=== PATIENT | female | born 1945 | race Native Hawaiian/Other Pacific Islander ===

== ENCOUNTER 2016-07-02 12:15 | Outpatient (CLI) | payer OTHER ==
[2016-07-02 13:22] LABS: POTASSIUM 4.1 mmol/L (3.6-5.2); SODIUM 141 mmol/L (136-145)
[2016-07-02 13:36] LABS: PLATELET COUNT 340 K/uL (152-353)
== END 2016-07-02 19:04 | disposition home or self-care (01) ==
LOC: LABW 12:15
PROVIDERS: Nurse Practitioner
DX: R10.84 Generalized abdominal pain (principal); R11.0 Nausea; R19.7 Diarrhea, unspecified; R63.0 Anorexia; R63.4 Abnormal weight loss; E55.9 Vitamin D deficiency, unspecified
CPT/HCPCS: 36415; 80053; 82306; 82607; 84439; 84443; 85027

== ENCOUNTER 2020-03-03 15:11 | Inpatient (IN) | payer OTHER ==
[2020-03-04 07:41] LABS: PLATELET COUNT 458 K/uL (152-353)
[2020-03-04 07:48] LABS: POTASSIUM 4.2 mmol/L (3.6-5.2)
== END 2020-03-10 14:57 | disposition still patient (30) ==
LOC: PAVB 15:11
PROVIDERS: ADMIT Internal Medicine; ATTEND Internal Medicine
DX: F03.91 Unspecified dementia, unspecified severity, with behavioral disturbance (principal); E41 Nutritional marasmus; R62.7 Adult failure to thrive; M62.81 Muscle weakness (generalized); R26.2 Difficulty in walking, not elsewhere classified; R48.8 Other symbolic dysfunctions; Z74.1 Need for assistance with personal care; G60.0 Hereditary motor and sensory neuropathy; F20.9 Schizophrenia, unspecified; F31.9 Bipolar disorder, unspecified
CPT/HCPCS: 80053; 80061; 82306; 82607; 84443; 85027; 87081

== ENCOUNTER 2020-03-10 15:23 | Inpatient (IN) | payer OTHER | END 2020-04-07 09:55 | disposition still patient (30) | LOC: PAVB 15:23 | PROVIDERS: ADMIT Internal Medicine; ATTEND Internal Medicine | DX: F03.91 Unspecified dementia, unspecified severity, with behavioral disturbance (principal); E41 Nutritional marasmus; R62.7 Adult failure to thrive; M62.81 Muscle weakness (generalized); R26.2 Difficulty in walking, not elsewhere classified; R48.8 Other symbolic dysfunctions; Z74.1 Need for assistance with personal care; G60.0 Hereditary motor and sensory neuropathy; F20.9 Schizophrenia, unspecified; F31.9 Bipolar disorder, unspecified ==

== ENCOUNTER 2020-03-18 14:44 | Outpatient (CLI) | payer OTHER | END 2020-03-18 22:53 | disposition home or self-care (01) | LOC: INF 14:44 | PROVIDERS: ATTEND Internal Medicine Endocrinology, Diabetes & Metabolism | DX: Z23 Encounter for immunization (principal) | CPT/HCPCS: 96372 ==

== ENCOUNTER 2020-04-07 10:31 | Inpatient (IN) | payer OTHER ==
[2020-04-11] MEDS ORDERED: MULTIVITAMI1 PO (23:03)
[2020-04-11] MEDS ORDERED: QUET50TA16 PO (23:04)
[2020-04-11] MEDS ORDERED: RISP1TAB PO (23:05)
[2020-04-11] MEDS ORDERED: [UNRECOGNIZED DRUG - OTHER] PO (23:06)
[2020-04-11] MEDS ORDERED: MEGESTROL AC40 MG/ML PO (23:06)
[2020-04-11] MEDS ORDERED: LEVO0.0218 PO (23:08)
[2020-04-11] MEDS ORDERED: DOXE25CA18 PO (23:08)
[2020-04-11] MEDS ORDERED: MELATONIN5 M4 PO (23:09)
[2020-04-15] MEDS ORDERED: ERTAPENEM1 GM IM (12:46)
== END 2020-05-08 10:16 | disposition still patient (30) ==
LOC: PAVB 10:31
PROVIDERS: ADMIT Internal Medicine; ATTEND Internal Medicine

== ENCOUNTER 2020-04-11 13:32 | Outpatient (CLI) | payer OTHER ==
[2020-04-11] MEDS ORDERED: MULTIVITAMI1 PO (23:03)
[2020-04-11] MEDS ORDERED: QUET50TA16 PO (23:04)
[2020-04-11] MEDS ORDERED: RISP1TAB PO (23:05)
[2020-04-11] MEDS ORDERED: MEGESTROL AC40 MG/ML PO (23:06)
[2020-04-11] MEDS ORDERED: [UNRECOGNIZED DRUG - OTHER] PO (23:06)
[2020-04-11] MEDS ORDERED: DOXE25CA18 PO (23:08)
[2020-04-11] MEDS ORDERED: LEVO0.0218 PO (23:08)
[2020-04-11] MEDS ORDERED: MELATONIN5 M4 PO (23:09)
== END 2020-04-11 21:34 | disposition home or self-care (01) ==
LOC: LAB 13:32
PROVIDERS: ATTEND Internal Medicine
DX: R41.82 Altered mental status, unspecified (principal)
CPT/HCPCS: 81000; 87077; 87086; 87088; 87186

== ENCOUNTER 2020-04-11 19:04 | Inpatient (IN) | payer OTHER ==
[~2020-04-11] VITALS: Ht 165.1 cm; Wt 48.3 kg
[2020-04-11] VITALS (7 sets, daily range): BP systolic 93–107; BP diastolic 46–62; TEMP 99.9
[2020-04-11 20:10] LABS: POTASSIUM 4.3 mmol/L (3.6-5.2); SODIUM 145 mmol/L (136-145)
[2020-04-11 20:15] LABS: PLATELET COUNT 141 K/uL (152-353)
[2020-04-11] MEDS ORDERED: MULTIVITAMI1 PO (23:03)
[2020-04-11] MEDS ORDERED: QUET50TA16 PO (23:04)
[2020-04-11] MEDS ORDERED: RISP1TAB PO (23:05)
[2020-04-11] MEDS ORDERED: MEGESTROL AC40 MG/ML PO (23:06)
[2020-04-11] MEDS ORDERED: [UNRECOGNIZED DRUG - OTHER] PO (23:06)
[2020-04-11] MEDS ORDERED: LEVO0.0218 PO (23:08)
[2020-04-11] MEDS ORDERED: DOXE25CA18 PO (23:08)
[2020-04-11] MEDS ORDERED: MELATONIN5 M4 PO (23:09)
[2020-04-12 00:22] VITALS: BP 90/52; TEMP 100.6; Ht 165.1 cm; Wt 48.3 kg
[2020-04-12 04:00] VITALS: BP 96/61; TEMP 98.2
[2020-04-12 05:32] LABS: PLATELET COUNT 111 K/uL (152-353)
[2020-04-12 06:04] LABS: POTASSIUM 3.6 mmol/L (3.6-5.2)
--- NOTE | 2020-04-12 06:08 | NUR ---
04/11/2020 AT 2228 PATIENT ADMITTED TO ROOM# 1106 VIA STRETCHER FROM ER. PATIENT IS A RESIDENT AT [facility] AND WAS SENT TO ER FOR EVALUATION DUE TO BEING LETHARGIC AND HYPOTENSIVE. PATIENT IS ADMITTED TO MED SURG FOR URINARY TRACT INFECTION AND SEPSIS. ON ARRIVAL TO MED SURG PATIENT IS ALERT BUT DROWSY AND ONLY MUMBLING WORDS AT TIMES, SKIN WARM AND DRY AND HAS AN AXILLARY TEMP OF 100.6. PATIENT WAS GIVEN A DOSE OF IV OFIVIR AND AXILLARY TEMP CAME DOWN TO 97.5. I CALLED OVER TO [facility] AND TALKED TO AYANNA OCAMPO AND PATIENT IS NORMALLY CONFUSED AND HAS A DIAGNOSIS OF ALZHEIMERS DISEASE, SHE IS NON AMBULATORY BUT BED ALARM SET JUST PRECAUTION. [facility] STAFF ALSO STATES THAT SHE IS ON A REGULAR, MECHANICAL SOFT DIET WITH ENSURE TID SUPPLEMENT. PATIENT NORMALLY HAS HER MEDS CRUSHED AND ADMINISTERED WITH PUDDING. WILL ADVISE ON COMING SHIFT OF PATIENTS NORMAL ROUTINE AND WILL CONTINUE TO MONITOR.
[2020-04-12 08:00] VITALS: BP 104/63; TEMP 98.3
--- NOTE | 2020-04-12 09:00 | NUR ---
RAJESH FROM LAB CALLED TO NOTIFY OF POSITIVE BLOOD CULTURES, DR. MARTINEZ MADE AWARE
[2020-04-12 12:00] VITALS: BP 95/58; TEMP 97.9
--- NOTE | 2020-04-12 15:01 | NUR ---
IN PT RM TO CHANGE BRIEF AT THIS TIME, DRESSING NOTED TO RT HIP INTACT, SKIN TEAR NOTED TO LOWER BACK RT SIDE WITH NO BLEEDING OR DRAINAGE NOTED, TELFA PAD ANDT TEGADERM PLACED OVER BLISTER ON RT ANKLE DRY ANDINTACT, NO FURTHER NEEDS AT THIS TIME, PT TOLERATED WELL, PT PLACED ON RT SIDE AT THIS TIME, WILL CONTINUE TO MONITOR
[2020-04-12 16:00] VITALS: BP 128/75; TEMP 98.6
[2020-04-12 20:00] VITALS: BP 130/81; TEMP 98.7
[2020-04-13] VITALS: BP 100/61; TEMP 99.3
[2020-04-13 04:00] VITALS: BP 110/69; TEMP 98.6
[2020-04-13 05:45] LABS: POTASSIUM 3.7 mmol/L (3.6-5.2)
[2020-04-13 05:51] LABS: PLATELET COUNT 94 K/uL (152-353)
[2020-04-13 08:00] VITALS: BP 128/84; TEMP 98.1
--- NOTE | 2020-04-13 08:19 | NUR ---
PT IV FLUIDS CHANGED OUT AND NEW BAG HUNG. PT AM MEDS CRUSHED AND PLACED IN PUDDING. PT TOLERATED AM MEDS WELL WITHOUT DIFFICULTY. AFTER TAKING AM MEDS PT ASSISTED PT WITH FINISHING UP PUDDING PER HER REQUEST. PT TOLERATED WELL.
--- NOTE | 2020-04-13 09:32 | NUR ---
SPOKE WITH PT'S DAUGHTER SAIMA ABOUT VISITATION RULES AND GUIDLINES. PT'S DAUGHTER VERBALIZED UNDERSTANDING. SAIMA STATES "CAN SHE HAVE TWO VISITORS?" INFORMED HER WE ALLOW ONE VISITOR AT A TIME WITH NON COVID PT'S UNLESS IT'S A FAMILY MEMBER THAT REQUIRES ASSISTANCE TO AND FROM PT'S ROOM. SAIMA THEN STATES "IT'S HER SISTER IN LAW WHO REALLY WANTS TO SEE HER, SHE IS 81 YEARS OLD AND WILL BE COMING IN WITH ME" INFORMED SAIMA THAT WE DO NOT ENCOURAGE THOSE OF HIGHER RISK OF ANAT COVID TO VISIT DUE TO THE RISKS OF COMING INTO CONTACT WITH COVID EVEN IN THE [place]. SAIMA THEN STATES "WELL IT'S BEEN OVER A YEAR SINCE ANY OF US HAVE SEEN HER AND WE ARE ALL WANTING TO SEE HER" AGAIN DISCOURAGED HER FROM BRINGING HER IN AND REMINDED HER OF THE RISKS. FAMILY MEMBER VERBALIZED UNDERSTANDING.
--- NOTE | 2020-04-13 11:30 | NUR ---
PT'S DAUGHTER AT BEDSIDE AT THIS TIME. IN TO HANG PT'S ANTIBIOTICS.
[2020-04-13 12:00] VITALS: BP 124/76; TEMP 99.9
--- NOTE | 2020-04-13 12:30 | NUR ---
THIS NURSE AND GILA MAURER, RN AT PT'S BEDSIDE TO CHANGE PT'S BREIF AND TURN PT. PT'S BREIF AND CHUCKS PADS CHANGED PT'S WIPED OFF. SM LOOSE BM NOTED. NO BREAK DOWN NOTED TO BOTTOM. DRESSING NOTED TO PT'S RIGHT HIP. PT REPOSITIONED IN BED TO LEFT SIDE. PT TOLERATED WELL WITHOUT DIFFICULTY. PT STATES "THANK YOU SO MUCH FOR THAT"
[2020-04-13 16:00] VITALS: BP 125/81; TEMP 99.5
[2020-04-13 20:00] VITALS: BP 126/81; TEMP 98
[2020-04-14] VITALS (7 sets, daily range): BP systolic 99–147; BP diastolic 68–81; TEMP 98.2–99.1
[2020-04-14 04:54] LABS: PLATELET COUNT 108 K/uL (152-353)
--- NOTE | 2020-04-14 08:30 | NUR ---
PT SUPINE IN BED, ALERT TO SELF BUT CONFUSED TO TIME, SITUATION, LOCATION, PT REPEATS PHRASES BUT IS PLEASANT AND WILL ASSIST WITH HOLDING HERSELF OVER WHILE STAFF PERFORMS PERICARE. LUNGS CTA, BOWEL SOUNDS HYPO X4, NO EDEMA NOTED. HEALING WOUNDS NOTE TO RT FOOT/ANKLE AREAS WELL TO L FOOT. SCATTERED BRUISES NOTED TO BLE. BLISTER DRAINING CLEAR, YELLOW FLUID NOTED TO LATERAL RL ANKLE, DRESSED WITH TELFA AND TAPE. BLISTER ALSO NOTED TO RLB, DRESSED WITH TELFA AND TAPE. 20G IN PLACE TO RFA WITH 1/2 NS INFUSING AT 75ML/HR WITH NO REDNESS, SWELLING OR DRAINAGE NOTED TO IV SITE. PT REQUIRES ASSIST WITH FEEDING HER BREAKFAST,- NO ATTEMPT MADE BY PT TO FEED HERSELF.
--- NOTE | 2020-04-14 10:45 | NUR ---
WOUND CARE PERFORMED TO WOUNDS TO RT HIP, RT BACK AND RLE. SKIN PREP APPLIED TO BONY PROMINENCES. WOUND TO RT HIP APPEARANCE IS SIMILAR TO HEALING PRESSURE ULCER AND IS OVER BONY AREA, 0.8X0.1X0.1. WOUND BED WHITE, NONDRAINING, SURROUNDING SKIN PINK. WOUND TO RT BACK APPEARANCE IS SIMILAR TO OPEN BLISTER, WOUND BED PINK, SURROUNDING AREA RED, 1.8X1X0. WOUND TO LATERAL RLE APPEARS TO BE OPENED BLISTER, YELLOW DRAINAGE, WOUND BED RED, SURROUNDING SKIN RED, 1.7X1.9X0. ALL WOUNDS CLEANED WITH NS, PATTED DRY [id number], NEOSPORIN APPLIED, COVERED WITH NONSTICK DRESSING AND SECURED WITH TAPE. PT MONSERRAT WELL.
--- NOTE | 2020-04-14 12:10 | NUR ---
UPDATE GIVEN TO PT'S DAUGHTER CHAYITO STOKES- DAUGHTER CONFIRMED THAT WOUND ON RT HIP IS HEALING DECUBITUS.
--- NOTE | 2020-04-14 13:29 | NUR ---
CALLED [facility] TO SEE IF THEY COULD MEET US SKILLED NURSING TO [facility], BUT [facility] NURSE ADVISED THAT PT DOESNT WEAR THEM THERE AND THEY ARE NOT ONSITE AT [facility].
--- NOTE | 2020-04-14 15:31 | NUR ---
PT RESTING QUIETLY IN BED ON L SIDE, IN NAD AT THIS TIME, SLEEPING. RESPIRATIONS EVEN AND NONLABORED.
--- NOTE | 2020-04-14 17:38 | NUR ---
BED BATH GIVEN AND LINENS CHANGED. SKIN PREP APPLIED TO BONY PROMINENCES.
--- NOTE | 2020-04-14 18:01 | NUR ---
PT FED , ENSURE GIVEN.
--- NOTE | 2020-04-15 01:21 | NUR ---
PATIENT HAS BEEN REPOSITONED AND BRIEF CHANGED. PATIENT REPORTS NO PAIN. PATIENT WAS GIVEN WATER AND THEN SHORTLY AFTER WENT TO SLEEP. PATIENT BREATHING IS STEADY AND NON LABORED
--- NOTE | 2020-04-15 01:22 | NUR ---
PATIENT WOUNDS ON HER LEFT CALF AND RIGHT HIP ARE DRESSED AND CLEAN DRY AND INTACT. PATIENT DENIES ANY PAIN IN THESE AREAS. PATIENTS HEELS ARE SOMEWHAT "BOGGY". PATIENT REPORTS THAT THEY ARE TENDER. I RESECURED HER BUNNY BOOTS AND REPOSITIONED HER.
[2020-04-15 04:00] VITALS: BP 117/70; TEMP 98.3
--- NOTE | 2020-04-15 05:41 | NUR ---
PATIENT WAS STRAING TO HAVE A BM. I FELT GENTLY AROUND THE RECTAL AREA AND IT WAS FIRM. I GENTALLY DIGITALLY UNIMPACTED HER. PATIENT REPORTED RELIEF.
[2020-04-15 06:14] LABS: PLATELET COUNT 122 K/uL (152-353)
[2020-04-15 08:00] VITALS: BP 134/86; TEMP 99
--- NOTE | 2020-04-15 08:11 | NUR ---
PT RESTING COMFORTABLY IN BED, IN NAD, CALL LIGHT IN EASY REACH. WILL CONTINUE TO MONITOR.
--- NOTE | 2020-04-15 09:00 | NUR ---
PT AWAKE, ALERT TO SELF, NOT ALERT TO TIME, SITUATION. PT PLEASANT, ACCEPTS BREAKFAST, ACCEPTS PO MEDS CRUSHED IN PUDDING. LUNGS CLEAR, DIMINISHED AT BASES, RESPIRATIONS SHALLOW AND EVEN, BOWEL SOUNDS ACTIVE X 4 WITH LAST BM THIS SHIFT. WOUND CARE PERFORMED TO AFFECTED AREAS, ALL CLEANED WITH NS, 4X4 AND PATTED DRY AND LEFT OPEN TO AIR, NO DRAINAGE NOTED. PT MONSERRAT WELL. 20G IV IN PLACED TO RFA INFUSING 1/2 NS AT 75ML/HR W/O DIFFICULTY, NO REDNESS, SWELLING OR DRAINAGE NOTED TO IV SITE OR AREA. PT REPOSITIONED FOR COMFORT WITH FEET ELEVATED. NAD NOTED AT THIS TIME.BED ALARM SET, BED LOW, LOCKED, SR UP TX2 FOR SAFETY.
--- NOTE | 2020-04-15 09:15 | NUR ---
PER PT'S DAUGHTER CHAYITO, SHE IS ANTICIPATING BEING ABLE TO PICK HER MOTHER UP FROM [place] FOR HOME VISIT NEXT WEEKEND AND IS WORRIED THAT SHE WON'T BE ABLE TO TAKE HER HOME WITH AN IV. DAUGHTER CHAYITO UNDERSTANDS THAT PT MAY REQUIRE IM INJECTIONS IF SHE DOESN'T HAVE AN IV AND STATES IF HAVING AN IV WILL PREVENT ANTICIPATED HOME VISIT, SHE WOULD PREFER THE IV TO BE PULLED. CHARGE NURSE NOTIFIED.
[2020-04-15 12:00] VITALS: BP 129/77; TEMP 98.7
[2020-04-15] MEDS ORDERED: ERTAPENEM1 GM IM (12:46)
--- NOTE | 2020-04-15 13:14 | NUR ---
REPORT CALLED TO [facility]. D/C REPORT FAXED OVER WELL.
--- NOTE | 2020-04-15 14:14 | NUR ---
PT LEFT FLOOR VIA WC IN NAD. BELONGINGS AND MEDICATED CREAM SENT WITH PT.
== END 2020-04-15 14:14 | DRG 872 ==
LOC: ED 19:04 → MED/SURG 21:51
PROVIDERS: ADMIT Family Medicine; ATTEND Internal Medicine
DX: A41.89 Other specified sepsis (principal); N39.0 Urinary tract infection, site not specified; B96.4 Proteus (mirabilis) (morganii) as the cause of diseases classified elsewhere; E03.8 Other specified hypothyroidism; F03.90 Unspecified dementia, unspecified severity, without behavioral disturbance, psychotic disturbance, mood disturbance, and anxiety; R41.82 Altered mental status, unspecified
CPT/HCPCS: 36415; 80053; 81000; 83605; 84443; 84484; 85007; 85027; 87040; 87077; 87086; 87088; 87186; 87205; 87635; 93005; 96360; 96361; 96365; 99284; J0132; J0696; J1335; J2543; J3370; J3490; U0003

== ENCOUNTER 2020-04-29 14:03 | Outpatient (CLI) | payer OTHER ==
[~2020-04-29 14:03] MED LIST: DOXE25CA18 PO; ERTAPENEM1 GM IM; LEVO0.0218 PO; MEGESTROL AC40 MG/ML PO; MELATONIN5 M4 PO; MULTIVITAMI1 PO; QUET50TA16 PO; RISP1TAB PO; [UNRECOGNIZED DRUG - OTHER] PO
== END 2020-04-29 21:58 | disposition home or self-care (01) ==
LOC: CT 14:03
PROVIDERS: ATTEND Internal Medicine
DX: M54.2 Cervicalgia (principal)

== ENCOUNTER 2020-05-08 10:46 | Inpatient (IN) | payer OTHER | END 2020-06-07 10:52 | disposition still patient (30) | LOC: PAVB 10:46 | PROVIDERS: ADMIT Internal Medicine; ATTEND Internal Medicine ==

== ENCOUNTER 2020-06-01 10:47 | Outpatient (CLI) | payer OTHER | END 2020-06-01 19:09 | disposition home or self-care (01) | LOC: LAB 10:47 | PROVIDERS: ATTEND Internal Medicine | DX: R82.998 Other abnormal findings in urine (principal) | CPT/HCPCS: 81000; 87086; 87088 ==

== ENCOUNTER 2020-06-07 11:17 | Inpatient (IN) | payer OTHER | END 2020-07-08 14:40 | disposition still patient (30) | LOC: PAVB 11:17 | PROVIDERS: ADMIT Internal Medicine; ATTEND Internal Medicine ==

== ENCOUNTER 2020-06-10 09:25 | Outpatient (CLI) | payer OTHER | END 2020-06-10 19:45 | disposition home or self-care (01) | LOC: LAB 09:25 | PROVIDERS: ATTEND Internal Medicine | DX: Z79.899 Other long term (current) drug therapy (principal); Z51.81 Encounter for therapeutic drug level monitoring | CPT/HCPCS: 80048 ==

== ENCOUNTER → 2020-06-11 | Outpatient (CLI) | payer OTHER | LOC: LAB 21:24 | PROVIDERS: ATTEND Internal Medicine | DX: Z51.81 Encounter for therapeutic drug level monitoring (principal) | CPT/HCPCS: 80170 ==

== ENCOUNTER 2020-07-08 15:12 | Inpatient (IN) | payer OTHER | END 2020-08-07 08:00 | disposition still patient (30) | LOC: PAVB 15:12 | PROVIDERS: ADMIT Internal Medicine; ATTEND Internal Medicine ==

== ENCOUNTER 2020-07-14 11:09 | Outpatient (CLI) | payer OTHER ==
[2020-07-14 14:35] LABS: PLATELET COUNT 265 K/uL (152-353)
== END 2020-07-14 21:47 | disposition home or self-care (01) ==
LOC: LAB 11:09
PROVIDERS: ATTEND Internal Medicine
DX: N93.8 Other specified abnormal uterine and vaginal bleeding (principal)
CPT/HCPCS: 85027; 87070

== ENCOUNTER 2020-07-22 08:24 | Outpatient (CLI) | payer OTHER | END 2020-07-22 19:18 | disposition home or self-care (01) | LOC: US 08:24 | PROVIDERS: ATTEND Internal Medicine | DX: R87.5 Abnormal microbiological findings in specimens from female genital organs (principal); N93.8 Other specified abnormal uterine and vaginal bleeding; N89.8 Other specified noninflammatory disorders of vagina ==

== ENCOUNTER 2020-08-07 09:00 | Inpatient (IN) | payer OTHER | END 2020-09-07 08:00 | disposition still patient (30) | LOC: PAVB 09:00 | PROVIDERS: ADMIT Internal Medicine; ATTEND Internal Medicine ==

== ENCOUNTER 2020-08-12 09:46 | Outpatient (CLI) | payer OTHER ==
[2020-08-12 11:06] LABS: POTASSIUM 4.4 mmol/L (3.6-5.2)
[2020-08-12 11:42] LABS: PLATELET COUNT 407 K/uL (152-353)
== END 2020-08-12 19:12 | disposition home or self-care (01) ==
LOC: LAB 09:46
PROVIDERS: ATTEND Internal Medicine
DX: G30.9 Alzheimer's disease, unspecified (principal); F02.80 Dementia in other diseases classified elsewhere, unspecified severity, without behavioral disturbance, psychotic disturbance, mood disturbance, and anxiety; E03.8 Other specified hypothyroidism; M62.81 Muscle weakness (generalized); R62.7 Adult failure to thrive
CPT/HCPCS: 80053; 84443; 85027

== ENCOUNTER 2020-09-07 09:00 | Inpatient (IN) | payer OTHER | END 2020-10-08 10:35 | disposition still patient (30) | LOC: PAVB 09:00 | PROVIDERS: ADMIT Internal Medicine; ATTEND Internal Medicine ==

== ENCOUNTER 2020-10-08 13:25 | Inpatient (IN) | payer OTHER | END 2020-11-07 08:45 | disposition still patient (30) | LOC: PAVB 13:25 | PROVIDERS: ADMIT Internal Medicine; ATTEND Internal Medicine ==

== ENCOUNTER 2021-01-07 10:36 | Inpatient (IN) | payer OTHER | END 2021-02-07 08:23 | disposition still patient (30) | LOC: PAVB 10:36 | PROVIDERS: ADMIT Internal Medicine; ATTEND Internal Medicine ==

== ENCOUNTER 2021-02-07 08:59 | Inpatient (IN) | payer OTHER | END 2021-03-10 09:32 | disposition still patient (30) | LOC: PAVB 08:59 | PROVIDERS: ADMIT Internal Medicine; ATTEND Internal Medicine ==

== ENCOUNTER 2021-02-10 07:18 | Outpatient (CLI) | payer OTHER ==
[2021-02-10 08:45] LABS: PLATELET COUNT 283 K/uL (152-353)
[2021-02-10 12:04] LABS: POTASSIUM 4.4 mmol/L (3.6-5.2)
== END 2021-02-10 19:06 | disposition home or self-care (01) ==
LOC: LAB 07:18
PROVIDERS: ATTEND Internal Medicine
DX: E41 Nutritional marasmus (principal); Z79.899 Other long term (current) drug therapy
CPT/HCPCS: 80053; 84443; 85027

== ENCOUNTER 2021-03-10 15:28 | Inpatient (IN) | payer OTHER | END 2021-04-07 09:00 | disposition still patient (30) | LOC: PAVB 15:28 | PROVIDERS: ADMIT Internal Medicine; ATTEND Internal Medicine ==

== ENCOUNTER 2021-04-07 12:47 | Inpatient (IN) | payer OTHER | END 2021-05-08 08:43 | disposition still patient (30) | LOC: PAVB 12:47 | PROVIDERS: ADMIT Internal Medicine; ATTEND Internal Medicine ==

== ENCOUNTER 2021-05-08 09:52 | Inpatient (IN) | payer OTHER | END 2021-06-07 10:25 | disposition still patient (30) | LOC: PAVB 09:52 | PROVIDERS: ADMIT Internal Medicine; ATTEND Internal Medicine ==

== ENCOUNTER 2021-06-07 01:20 | Inpatient (IN) | payer OTHER | END 2021-07-08 09:40 | disposition still patient (30) | LOC: PAVB 01:20 | PROVIDERS: ADMIT Internal Medicine; ATTEND Internal Medicine ==

== ENCOUNTER 2021-07-08 14:20 | Inpatient (IN) | payer OTHER | END 2021-08-07 09:07 | disposition still patient (30) | LOC: PAVB 14:20 | PROVIDERS: ADMIT Internal Medicine; ATTEND Internal Medicine ==

== ENCOUNTER 2021-08-07 08:16 | Outpatient (CLI) | payer OTHER ==
[2021-08-07 09:38] LABS: PLATELET COUNT 315 K/uL (152-353)
[2021-08-07 09:59] LABS: POTASSIUM 4.4 mmol/L (3.6-5.2)
== END 2021-08-07 21:14 | disposition home or self-care (01) ==
LOC: LAB 08:16
PROVIDERS: ATTEND Internal Medicine
DX: R48.8 Other symbolic dysfunctions (principal); E03.8 Other specified hypothyroidism
CPT/HCPCS: 80053; 84443; 85027

== ENCOUNTER 2021-08-07 11:30 | Inpatient (IN) | payer OTHER | END 2021-09-07 09:17 | disposition still patient (30) | LOC: PAVB 11:30 | PROVIDERS: ADMIT Internal Medicine; ATTEND Internal Medicine ==

== ENCOUNTER 2021-09-07 11:59 | Inpatient (IN) | payer OTHER | END 2021-10-08 09:04 | disposition still patient (30) | LOC: PAVB 11:59 | PROVIDERS: ADMIT Internal Medicine; ATTEND Internal Medicine ==

== ENCOUNTER 2021-10-08 12:04 | Inpatient (IN) | payer OTHER | END 2021-11-07 10:27 | disposition still patient (30) | LOC: PAVB 12:04 | PROVIDERS: ADMIT Internal Medicine Endocrinology, Diabetes & Metabolism; ATTEND Internal Medicine Endocrinology, Diabetes & Metabolism ==

== ENCOUNTER 2021-11-07 12:48 | Inpatient (IN) | payer OTHER | END 2021-12-08 14:49 | disposition still patient (30) | LOC: PAVB 12:48 | PROVIDERS: ADMIT Internal Medicine Endocrinology, Diabetes & Metabolism; ATTEND Internal Medicine Endocrinology, Diabetes & Metabolism ==

== ENCOUNTER 2021-12-08 15:43 | Inpatient (IN) | payer OTHER | END 2022-01-07 15:08 | disposition still patient (30) | LOC: PAVB 15:43 | PROVIDERS: ADMIT Internal Medicine Endocrinology, Diabetes & Metabolism; ATTEND Internal Medicine Endocrinology, Diabetes & Metabolism ==

== ENCOUNTER 2022-01-07 17:25 | Inpatient (IN) | payer OTHER | END 2022-02-07 10:38 | disposition still patient (30) | LOC: PAVB 17:25 | PROVIDERS: ADMIT Internal Medicine Endocrinology, Diabetes & Metabolism; ATTEND Internal Medicine Endocrinology, Diabetes & Metabolism ==

== ENCOUNTER 2022-02-07 12:26 | Inpatient (IN) | payer OTHER | END 2022-03-10 08:51 | disposition still patient (30) | LOC: PAVB 12:26 | PROVIDERS: ADMIT Internal Medicine Endocrinology, Diabetes & Metabolism; ATTEND Internal Medicine Endocrinology, Diabetes & Metabolism ==

== ENCOUNTER 2022-02-09 08:21 | Outpatient (CLI) | payer OTHER ==
[2022-02-09 08:54] LABS: PLATELET COUNT 337 K/uL (152-353)
[2022-02-09 09:14] LABS: POTASSIUM 4.6 mmol/L (3.6-5.2)
== END 2022-02-09 18:56 | disposition home or self-care (01) ==
LOC: LAB 08:21
PROVIDERS: ATTEND Internal Medicine Endocrinology, Diabetes & Metabolism
DX: E03.8 Other specified hypothyroidism (principal); G30.9 Alzheimer's disease, unspecified
CPT/HCPCS: 80053; 84443; 85027

== ENCOUNTER 2022-03-10 11:06 | Inpatient (IN) | payer OTHER | END 2022-04-07 12:04 | disposition still patient (30) | LOC: PAVB 11:06 | PROVIDERS: ADMIT Internal Medicine Endocrinology, Diabetes & Metabolism; ATTEND Internal Medicine Endocrinology, Diabetes & Metabolism ==

== ENCOUNTER 2022-04-07 13:13 | Inpatient (IN) | payer OTHER | END 2022-05-08 11:28 | disposition still patient (30) | LOC: PAVB 13:13 | PROVIDERS: ADMIT Internal Medicine Endocrinology, Diabetes & Metabolism; ATTEND Internal Medicine Endocrinology, Diabetes & Metabolism ==

== ENCOUNTER 2022-05-08 11:59 | Inpatient (IN) | payer OTHER | END 2022-06-07 10:50 | disposition still patient (30) | LOC: PAVB 11:59 | PROVIDERS: ADMIT Internal Medicine Endocrinology, Diabetes & Metabolism; ATTEND Internal Medicine Endocrinology, Diabetes & Metabolism ==

== ENCOUNTER 2022-06-07 13:49 | Inpatient (IN) | payer OTHER | END 2022-07-08 10:37 | disposition still patient (30) | LOC: PAVB 13:49 | PROVIDERS: ADMIT Internal Medicine Endocrinology, Diabetes & Metabolism; ATTEND Internal Medicine Endocrinology, Diabetes & Metabolism ==

== ENCOUNTER 2022-07-08 11:20 | Inpatient (IN) | payer OTHER | END 2022-08-07 17:34 | disposition still patient (30) | LOC: PAVB 11:20 | PROVIDERS: ADMIT Internal Medicine Endocrinology, Diabetes & Metabolism; ATTEND Internal Medicine Endocrinology, Diabetes & Metabolism ==